=== PATIENT | female | born 1955 | race Caucasian/White ===

== ENCOUNTER 2017-05-14 13:16 | Inpatient (IN) | payer MEDICARE, OTHER ==
[~2017-05-14] VITALS: Ht 162.6 cm; Wt 88.1 kg
[~2017-05-14 13:16] MED LIST: BUPIVACAINE/PF-EPI 0.25% 1:200K ONE; FLUORESCEIN SODIUM 500 MG/5 ML ONE
[2017-05-14] MEDS ORDERED: LACTATED RINGERS 1,000 ML IV SCH (14:17)
[2017-05-14] MEDS ORDERED: LISI-167 PO (14:23)
[2017-05-14] MEDS ORDERED: PLEASE ENTER ALLERGIES MC SCH ×2 (14:30)
[2017-05-14 14:33] VITALS: BP 164/109
[2017-05-14 14:35] LABS: HEMATOCRIT 41.8 % (34.6-47.8); HEMOGLOBIN 13.8 g/dL (11.7-16.4); WHITE BLOOD COUNT 8.8 x10^3/uL (3.4-10)
[2017-05-14 14:46] LABS: ASPARTATE AMINO TRANSFERASE 30 U/L (15-37); BLOOD UREA NITROGEN 9 mg/dL (7-18)
[2017-05-14] MEDS ORDERED: FENTANYL PF 100 MCG/2ML ONE ×3 (15:18→19:39)
[2017-05-14] MEDS ORDERED: MIDAZOLAM 1 MG/ML, 2ML ONE (15:18)
[2017-05-14] MEDS ORDERED: BUPIVACAINE/PF-EPI 0.25% 1:200K ONE (15:41)
[2017-05-14] MEDS ORDERED: GLYCOPYRROLATE 0.2MG/1ML, 5ML ONE (16:13)
[2017-05-14] MEDS ORDERED: ROCURONIUM 10 MG/ML ONE (16:13)
[2017-05-14] MEDS ORDERED: SUCCINYLCHOLINE 20 MG/ML, 10ML ONE (16:13)
[2017-05-14] MEDS ORDERED: NEOSTIGMINE 1 MG/ML, 10ML ONE (16:13)
[2017-05-14] MEDS ORDERED: KETOROLAC 30 MG/1 ML ONE (16:13)
[2017-05-14] MEDS ORDERED: PROPOFOL 10 MG/ML, 20ML ONE (16:13)
[2017-05-14] MEDS ORDERED: ONDANSETRON 2MG/ML, 2ML ONE (16:13)
[2017-05-14] MEDS ORDERED: CEFAZOLIN 1,000 MG ONE (16:13)
[2017-05-14] MEDS ORDERED: DEXAMETHASONE 4 MG/ML, 1ML ONE (16:13)
[2017-05-14] MEDS ORDERED: LABETALOL 5MG/ML 40ML VIAL ONE (16:13)
[2017-05-14] MEDS ORDERED: HYDROmorphone 2 MG/ML, 1ML ONE (18:28)
[2017-05-14] MEDS ORDERED: hydrALAzine 20 MG/ML, 1ML IV PRN (18:30)
[2017-05-14] MEDS ORDERED: DIAZEPAM 5 MG/ML, 2ML IVPush PRN (18:30)
[2017-05-14] MEDS ORDERED: LABETALOL 5MG/ML, 20ML IV PRN (18:30)
[2017-05-14] MEDS ORDERED: ACETAMINOPHEN 325 MG TABLET PO PRN (18:30)
[2017-05-14] MEDS ORDERED: MEPERIDINE/PF 25MG/0.5ML IVPush PRN (18:30)
[2017-05-14] MEDS ORDERED: ALBUTEROL SULFATE 2.5 MG/3 ML NPPB PRN (18:30)
[2017-05-14] MEDS ORDERED: HYDROmorphone 1 MG/ML, 1ML IV PRN (18:30)
[2017-05-14] MEDS ORDERED: HYDROcodone/APAP 7.5-325MG/15ML UDC PO PRN (18:30)
[2017-05-14] MEDS ORDERED: ONDANSETRON 2MG/ML, 2ML IVPush PRN (18:30)
[2017-05-14] MEDS ORDERED: PROMETHAZINE 25 MG/ML, 1ML IV PRN (18:30)
[2017-05-14] MEDS ORDERED: MIDAZOLAM 1 MG/ML, 2ML IV PRN (18:30)
[2017-05-14] MEDS ORDERED: OXYcodone 5 MG/5 ML ORAL.SOL UDC PO PRN (18:30)
[2017-05-14] MEDS ORDERED: METOPROLOL 1 MG/ML, 5ML IV PRN (18:30)
[2017-05-14] MEDS ORDERED: EPHEDRINE 50 MG/ML, 1ML IVPush PRN (18:30)
[2017-05-14] MEDS: FENTANYL PF 100 MCG/2ML IV PRN ×2 (19:41→19:46)
[2017-05-14] MEDS ORDERED: MEPERIDINE/PF 50 MG/ML ONE (19:47)
[2017-05-14] MEDS ORDERED: OXYcodone 5 MG/5 ML ORAL.SOL UDC ONE (21:24)
[2017-05-14] MEDS ORDERED: ACETAMINOPHEN 650 MG/20.3 ML UDC ONE (21:24)
[2017-05-14] MEDS ORDERED: ONDANSETRON 2MG/ML, 2ML IV PRN (23:00)
[2017-05-14] MEDS ORDERED: SODIUM CHLORIDE 0.9% 1,000ML IV PRN (23:00)
[2017-05-14] MEDS ORDERED: morphine SULFATE 10 MG/ML, 1ML IV PRN (23:00)
[2017-05-14] MEDS: FAMOTIDINE 20 MG TABLET PO SCH (23:13)
[2017-05-14] MEDS: D5%-0.45NACL+KCL 20MEQ 1,000 ML IV SCH (23:14)
[2017-05-14] MEDS: OXYcodone/APAP 7.5/325MG TABLET PO PRN (23:14)
[2017-05-15] MEDS ORDERED: ACETAMINOPHEN 325 MG TABLET PO PRN (00:30)
[2017-05-15 02:33] VITALS: BP 142/79
[2017-05-15] MEDS: KETOROLAC 30 MG/1 ML IV PRN ×3 (05:09→17:47)
[2017-05-15 06:14] LABS: DIFF TOTAL CELLS COUNTED 100 CELL DIFF; HEMATOCRIT 32.9 % (34.6-47.8); HEMOGLOBIN 10.9 g/dL (11.7-16.4); WHITE BLOOD COUNT 11.3 x10^3/uL (3.4-10)
[2017-05-15 06:19] LABS: BLOOD UREA NITROGEN 10 mg/dL (7-18)
[2017-05-15 07:15] VITALS: BP 134/79
[2017-05-15] MEDS: OXYcodone/APAP 7.5/325MG TABLET PO PRN ×2 (07:39→13:39)
[2017-05-15 08:10] LABS: VERIFY COUNTS? YES
[2017-05-15] MEDS: D5%-0.45NACL+KCL 20MEQ 1,000 ML IV SCH ×2 (08:30→13:39)
[2017-05-15] MEDS: FAMOTIDINE 20 MG TABLET PO SCH ×2 (08:44→20:52)
[2017-05-15] MEDS ORDERED: SODIUM CHLORIDE 0.9% 1,000ML IVBOLUS ONE (09:00)
[2017-05-15 13:15] VITALS: BP 132/78
[2017-05-15] MEDS: OXYcodone/APAP 10/325MG TABLET PO PRN (20:12)
[2017-05-15 21:24] VITALS: BP 142/88
[2017-05-16] MEDS: D5%-0.45NACL+KCL 20MEQ 1,000 ML IV SCH (00:51)
[2017-05-16] MEDS: KETOROLAC 30 MG/1 ML IV PRN (00:51)
[2017-05-16 02:30] VITALS: BP 121/73
[2017-05-16] MEDS: OXYcodone/APAP 10/325MG TABLET PO PRN (04:34)
[2017-05-16 05:45] LABS: HEMATOCRIT 31.6 % (34.6-47.8); HEMOGLOBIN 10.4 g/dL (11.7-16.4); WHITE BLOOD COUNT 10.1 x10^3/uL (3.4-10)
[2017-05-16 06:17] LABS: BLOOD UREA NITROGEN 7 mg/dL (7-18)
[2017-05-16 06:44] VITALS: BP 118/72
[2017-05-16] MEDS ORDERED: OXYcodone/APAP 10/325MG TABLET ONE (10:23)
[2017-05-16] MEDS ORDERED: METOCLOPRAMIDE 10MG TABLET PO PRN (10:30)
[2017-05-16] MEDS ORDERED: ONDANSETRON ODT 4 MG PO PRN (10:30)
[2017-05-16] MEDS ORDERED: OXYcodone/APAP 7.5/325MG TABLET PO PRN (10:30)
[2017-05-16] MEDS ORDERED: OXYcodone/APAP 7.5/325MG TABLET ONE (10:31)
[2017-05-16] MEDS ORDERED: OXYC-306 PO (11:53)
[2017-05-16] MEDS ORDERED: METO10TA82 PO (11:54)
[2017-05-16] MEDS ORDERED: ONDA4TAB7 PO (11:54)
== END 2017-05-16 12:13 | disposition home or self-care (01) | DRG 741 ==
LOC: ORIP 13:16 → 4NOR 21:30 → DCLOUNGE 05-16 11:50
PROVIDERS: ADMIT Specialist; ATTEND Specialist
PROC: 0UT2FZZ Resection of Bilateral Ovaries, Via Natural or Artificial Opening With Percutaneous Endoscopic Assistance (ICD-10-PCS; 2017-05-14)
PROC: 0UT7FZZ Resection of Bilateral Fallopian Tubes, Via Natural or Artificial Opening With Percutaneous Endoscopic Assistance (ICD-10-PCS; 2017-05-14)
PROC: 07BC4ZZ Excision of Pelvis Lymphatic, Percutaneous Endoscopic Approach (ICD-10-PCS; 2017-05-14)
PROC: 0UT94ZZ Resection of Uterus, Percutaneous Endoscopic Approach (ICD-10-PCS; 2017-05-14)
PROC: 0UTC4ZZ Resection of Cervix, Percutaneous Endoscopic Approach (ICD-10-PCS; 2017-05-14)
PROC: 8E0W4CZ Robotic Assisted Procedure of Trunk Region, Percutaneous Endoscopic Approach (ICD-10-PCS; 2017-05-14)
PROC: 0T788DZ Dilation of Bilateral Ureters with Intraluminal Device, Via Natural or Artificial Opening Endoscopic (ICD-10-PCS; principal; 2017-05-14 15:30)
DX: C53.9 Malignant neoplasm of cervix uteri, unspecified (principal); I10 Essential (primary) hypertension
CPT/HCPCS: 36415; 71010; 74000; 80048; 80053; 85025; 85610; 85730; 86850; 86900; 86923; 88305; 88307; 93005; J0690; J1100; J1170; J1885; J2175; J2250; J2405; J2704; J2710; J3010; J3490; Q0162; C1769; C2617; J0330; J3480; J7030; J7120